=== PATIENT | male | born 1970 | race Caucasian/White ===

== ENCOUNTER 2025-08-18 18:18 | Emergency (ER) | payer BC ==
[2025-08-18] MEDS ORDERED: Sodium Chloride 0.9% 10 ML Syringe FLUSH PRN ×2 (18:31→18:48)
[2025-08-18] MEDS: Labetalol 100 MG/20 ML MDV IVPUSH ONE (19:09)
[2025-08-18 19:18] LABS: MEAN PLATELET VOLUME 10.1 fL (6.0-10.0); PLATELET COUNT,PLT 236.0 K/uL (150-400); RED BLOOD CELL COUNT 4.89 M/uL (4.50-6.50); RED CELL DISTRIBUTION WIDTH 12.0 % (11.0-16.0); WHITE BLOOD CELL COUNT,WBC 6.2 K/uL (4.0-11.0)
[2025-08-18 19:27] LABS: PHOSPHORUS 3.9 mg/dL (2.5-4.9)
[2025-08-18 19:31] LABS: BLOOD UREA NITROGEN,BUN 12.0 mg/dL (8-26); CARBON DIOXIDE,CO2 28.4 mmol/L (21.0-32.0); CHLORIDE,CL 102.0 mmol/L (98-107); CREATININE 0.93 mg/dL (0.70-1.30); EST CRCL DRUG DOSING (CG) 89.89 mL/min; ESTIMATED GFR 99.0 mL/min (>60); GLUCOSE RANDOM 226.0 mg/dL (74-100); POTASSIUM,K 3.7 mmol/L (3.5-5.1); SODIUM,NA 142.0 mmol/L (136-145); TROPONIN I HIGH SENSITIVITY 8.3 pg/ml (<=60.4)
[2025-08-18] MEDS: Sodium Chloride 0.9% 50 ML SDV FLUSH SCH (19:42)
[2025-08-18] MEDS: Iopamidol 612 MG/ML 100 ML Bottle IV PRN (19:42)
== END 2025-08-18 21:25 | disposition home or self-care (01) ==
LOC: LB.ED 18:18
DX: M54.12 Radiculopathy, cervical region (principal); I15.8 Other secondary hypertension; E11.9 Type 2 diabetes mellitus without complications; Z79.82 Long term (current) use of aspirin; Z79.899 Other long term (current) drug therapy; Z79.84 Long term (current) use of oral hypoglycemic drugs
CPT/HCPCS: 36415; 70450; 70496; 70498; 71045; 80048; 82947; 83735; 84100; 84484; 85027; 85379; 93005; 96374; 99284; A9270; J1920; Q9967; 93010